=== PATIENT | female | born 1945 | race Caucasian/White ===

== ENCOUNTER 2017-09-18 14:19 | Emergency (ER) | payer MEDICARE ==
[2017-09-18] MEDS: ONDANSETRON PF 4 MG/2 ML VIAL. IV (16:16)
[2017-09-18] MEDS: MORPHINE SULFATE 10 MG/ML VIAL. IV (16:17)
[2017-09-18] MEDS: DIPHTH,PERTUSS(ACELL),TET TOX 0.5 ML DISP.SYRIN. VAX IM (16:18)
[2017-09-18] MEDS ORDERED: ONDANSETRON PF 4 MG/2 ML VIAL. IV (19:30)
[2017-09-18] MEDS ORDERED: fentaNYL PF VIAL 100 MCG/2 ML VIAL IV (19:30)
[2017-09-18] MEDS: oxyCODONE/APAP 5/325 1 TAB TABLET PO (19:37)
== END 2017-09-18 20:07 | disposition home or self-care (01) ==
LOC: ER 14:19 → 4 NORTH 18:33 → ER 20:07
DX: S16.1XXA Strain of muscle, fascia and tendon at neck level, initial encounter (principal); S40.212A Abrasion of left shoulder, initial encounter; S70.212A Abrasion, left hip, initial encounter; S80.212A Abrasion, left knee, initial encounter; S09.90XA Unspecified injury of head, initial encounter; M54.5 Low back pain; I10 Essential (primary) hypertension; E03.9 Hypothyroidism, unspecified; Z90.49 Acquired absence of other specified parts of digestive tract; Z90.710 Acquired absence of both cervix and uterus; Z91.040 Latex allergy status; Z96.649 Presence of unspecified artificial hip joint; W10.9XXA Fall (on) (from) unspecified stairs and steps, initial encounter; Y93.89 Activity, other specified; Y92.89 Other specified places as the place of occurrence of the external cause; Y99.8 Other external cause status
CPT/HCPCS: 70450; 72125; 73030; 73502; 73562; 90471; 90715; 96374; 96375; 99284-25; J2270; J2405